=== PATIENT | male | born 1975 | race Caucasian/White ===

== ENCOUNTER 2019-07-29 15:57 | Emergency (ER) | payer OTHER ==
[~2019-07-29] VITALS: Ht 185.4 cm; Wt 97.5 kg
[2019-07-29] MEDS ORDERED: SODIUM CHLORIDE 0.9% 1000ML 1,000 ML IV STA (16:32)
--- NOTE | 2019-07-29 16:40 | Emergency Department Note ---
History of Present Illnes History of Present Illness Chief Complaint: Abdominal Complaints History of Present Illness This is a 44 year old male . c/p epigastric pain x 6 days worse w/ eating c/o n/v Historian: Patient Arrival Mode: Car Radiation: non-radiation Severity: moderate Onset quality: gradual Duration (how long): day(s) (6days) Timing of current episode: intermittent Progression: waxing and waning Context: recent illness, recent surgery, recent immobilization, recent travel, trauma/injury, new medications, hx of DVT/PE, non-compliance w/ medications, other Relieving factors: none Exacerbating factors: none Treatments prior to arrival: none (ROSA DAMIAN NP) Past Medical/Family History Physician Review I have reviewed the patient's past medical and family history. Any updates have been documented here. (ROSA DAMIAN NP) Past Medical History Recent Fever: No Clinical Suspicion of Infectio: No New/Unexplained Change in Ment: No Past Medical History: None Past Surgical History: None (ROSA DAMIAN NP) Social History Smoking Cessation: Never Smoker Alcohol Use: Social Any Illegal Drug Use: No TB Exposure/Symptoms: No Physically hurt or threatened: No (ROSA DAMIAN NP) Family History Family history of heart diseas: No (ROSA DAMIAN NP) Other Any Pre-Existing Lines (PICC,: No (ROSA DAMIAN NP) Review of Systems Review of Systems Constitutional: no symptoms, as per HPI, chills, diaphoresis, fever, malaise, weakness, other EENTM: no symptoms, as per HPI, eye pain, blurred vision, tearing, double vision, ear pain, ear discharge, nose pain, nose congestion, throat pain, throat swelling, mouth pain, mouth swelling, other Cardiovascular: no symptoms, as per HPI, chest pain, edema, palpitations, syncope, other Respiratory: no symptoms, as per HPI, change in phlegm color, chest congestion, cough, hemoptysis, excessive phlegm production, pain on inspiration, pain with cough, dyspnea, dyspnea on exertion, snoring, stridor, wheezing, other Gastrointestinal: abdominal pain, nausea, vomiting Genitourinary: no symptoms, as per HPI, discharge, dysuria, frequency, hematuria, pain, other Musculoskeletal: no symptoms, as per HPI, back pain, gout, joint pain, joint swelling, muscle pain, muscle stiffness, neck pain, other Neurological: no symptoms, as per HPI, headache, numbness, paresthesia, pre- existing deficit, seizure, tingling, tremors, weakness, other Psychological: no symptoms, as per HPI, anxiety, depressed, emotional problems, other Endocrine: no symptoms, as per HPI, excessive sweating, flushing, intolerance to cold, intolerance to heat, increased hunger, increased thirst, increased urination, unexplained weight gain, unexplained weight loss, other Hematological/Lymphatic: no symptoms, as per HPI, anemia, blood clots, easy bleeding, easy bruising, swollen glands, other Review of other systems All other systems reviewed and negative. (ROSA DAMIAN NP) Physical Exam Related Data Allergies: Coded Allergies: No Known Allergies (Unverified , 07/29/19) Triage Vital Signs Vital Signs Date Time Temp Pulse Resp B/P (MAP) Pulse Ox O2 Delivery O2 Flow Rate FiO2 07/29/19 16:29 99.2 86 16 133/97 98 Vital signs reviewed: Yes (ROSA DAMIAN CHARGE ENTRY CLERK) Physical Exam CONSTITUTIONAL Constitutional: well-developed, well-nourished HENT HENT: normocephalic, atraumatic, oropharynx clear/moist, nose normal HENT L/R: left ext ear normal, right ext ear normal EYES Eyes: conjunctivae normal, EOM normal NECK Neck: ROM normal PULMONARY Pulmonary: effort normal, breath sounds normal CARDIOVASCULAR Cardiovascular: regular rhythm, heart sounds normal, capillary refill normal, n ormal rate GASTROINTESTINAL Abdominal: soft, bowel sounds normal, tender (mild epigastric ttp ) GENITOURINARY Genitourinary: exam deferred SKIN Skin: warm, dry MUSCULOSKELETAL Musculoskeletal: ROM normal NEUROLOGICAL Neurological: alert, oriented x 3, no gross motor or sensory deficits PSYCHOLOGICAL Psychological: mood/affect normal, judgement normal (ROSA DAMIAN CHARGE ENTRY CLERK) Results Laboratory Laboratory Laboratory Tests Test 07/29/19 16:40 White Blood Count 7.14 x10e3/uL (4.8-10.8) Red Blood Count 5.23 x10e6/uL (4.3-5.7) Hemoglobin 16.1 g/dL (14.0-18.0) Hematocrit 47.2 % (38.2-49.6) Mean Corpuscular Volume 90.2 fL (81-99) Mean Corpuscular Hemoglobin 30.8 pg (28-32) Mean Corpuscular Hemoglobin Concent 34.1 g/dL (31-35) Red Cell Distribution Width 11.4 % (11.7-14.4) Platelet Count 232 x10e3/uL (140-360) Neutrophils (%) (Auto) 66.5 % (38.7-80.0) Lymphocytes (%) (Auto) 21.6 % (18.0-39.1) Monocytes (%) (Auto) 7.3 % (4.4-11.3) Eosinophils (%) (Auto) 3.9 % (0.0-6.0) Basophils (%) (Auto) 0.4 % (0.0-1.0) Neutrophils # (Auto) 4.8 (2.1-6.9) Lymphocytes # (Auto) 1.5 (1.0-3.2) Monocytes # (Auto) 0.5 (0.2-0.8) Eosinophils # (Auto) 0.3 (0.0-0.4) Basophils # (Auto) 0.0 (0.0-0.1) Absolute Immature Granulocyte (auto 0.02 x10e3/uL (0-0.1) Sodium Level 138 mmol/L (136-145) Potassium Level 4.3 mmol/L (3.5-5.1) Chloride Level 104 mmol/L (98-107) Carbon Dioxide Level 24 mmol/L (22-29) Anion Gap 14.3 mmol/L (8-16) Blood Urea Nitrogen 15 mg/dL (7-26) Creatinine 1.30 mg/dL (0.72-1.25) Estimat Glomerular Filtration Rate 59 ML/MIN (60-) BUN/Creatinine Ratio 12 (6-25) Glucose Level 96 mg/dL (74-118) Calcium Level 9.5 mg/dL (8.4-10.2) Total Bilirubin 0.9 mg/dL (0.2-1.2) Aspartate Amino Transf (AST/SGOT) 18 IU/L (5-34) Alanine Aminotransferase (ALT/SGPT) 20 IU/L (0-55) Alkaline Phosphatase 62 IU/L (40-150) Troponin I < 0.001 ng/mL (0-0.300) Total Protein 7.4 g/dL (6.5-8.1) Albumin 4.3 g/dL (3.5-5.0) Globulin 3.1 g/dL (2.3-3.5) Albumin/Globulin Ratio 1.4 (0.8-2.0) Amylase Level 50 U/L (25-125) Lipase 38 U/L (8-78) Lab results reviewed: Yes (ROSA DAMIAN NP) Imaging Imaging results reviewed: Yes Impressions ct abd IMPRESSION: Diffuse diverticulosis throughout the colon without diverticulitis. Signed by: Dr. Vilma Wells M.D. on 07/29/2019 7:02 PM (ROSA DAMIAN NP) Critical Care Time Subsequent provider I assumed direction of critical care for this patient from another provider of my specialty. (ROSA DAMIAN NP) Assessment & Plan Assessment & Plan Problems: (1) Abdominal pain Assessment & Plan 44y m presented to ed c/o mid epigastric abd pain x 6 days worse w/ eating c/o intermittent n/v - discussed presentation and plan of care w/ Dr Ford - lab ct us ordered - pt medicated w/ ns zofran protonix bentyl Dr Bryan in eval pt status discussed lab ct results plan of care and f/u instructions 1. f/u w/ gi doc Wednesday w/o fail 2. return to ed as needed 3. bland diet (ROSA DAMIAN NP) Depart Disposition: HOME, SELF-CARE Medications in the ED Sodium Chloride 1,000 ml @ 0 mls/hr Q0M STAT IV ; Start 07/29/19 at 16:32; Stop 07/29/19 at 16:33 Pantoprazole Sodium 40 mg ONCE STAT IV ; Start 07/29/19 at 16:32; Stop 07/29/19 at 16:33; Status UNV Dicyclomine HCl 20 mg ONCE ONCE IM ; Start 07/29/19 at 16:45; Stop 07/29/19 at 16:46 (ROSA DAMIAN NP) Attestation Provider Attestation The patient's history, exam findings, diagnostics, and a summary of any interve ntions or procedures was reviewed in detail with our SUNDAR. I personally interviewed and examined the patient, and I have reviewed and agree with the HPI andexam. My personal exam shows [ pt with mild epigastric tenderness on exam, abd soft, bowel sounds positive]. I confirm the diagnosis as documented by the SUNDAR. I have reviewed and agree with the care plan articulated in the disposition section. (LAKEISHA BRYAN MD) ROSA DAMIAN NP July 29, 2019 16:40 LAKEISHA BRYAN MD July 29, 2019 19:27
[2019-07-29] MEDS ORDERED: PANTOPRAZOLE 40 MG 10ML VIAL IV NR (16:45)
[2019-07-29] MEDS ORDERED: DICYCLOMINE HCL 20 MG/2 ML VIAL IM ONE (16:45)
[2019-07-29 17:03] LABS: BASOPHILS % 0.4 % (0.0-1.0); EOSINOPHILS # (AUTO) 0.3 (0.0-0.4); EOSINOPHILS % 3.9 % (0.0-6.0); HEMATOCRIT 47.2 % (38.2-49.6); HEMOGLOBIN 16.1 g/dL (14.0-18.0); LYMPHOCYTES # (AUTO) 1.5 (1.0-3.2); LYMPHOCYTES % 21.6 % (18.0-39.1); MEAN CORPUSCULAR HEMOGLOBIN 30.8 pg (28-32); MEAN CORPUSCULAR HGB CONC 34.1 g/dL (31-35); MEAN CORPUSCULAR VOLUME 90.2 fL (81-99); MONOCYTES # (AUTO) 0.5 (0.2-0.8); MONOCYTES % 7.3 % (4.4-11.3); NEUTROPHILS # (AUTO) 4.8 (2.1-6.9); NEUTROPHILS % 66.5 % (38.7-80.0); PLATELET COUNT 232 x10e3/uL (140-360); RED BLOOD COUNT 5.23 x10e6/uL (4.3-5.7); RED CELL DISTRIBUTION WIDTH 11.4 % (11.7-14.4)
[2019-07-29 17:17] LABS: ALBUMIN 4.3 g/dL (3.5-5.0); ALBUMIN/GLOBULIN RATIO 1.4 (0.8-2.0); ANION GAP 14.3 mmol/L (8-16); CALCIUM 9.5 mg/dL (8.4-10.2); CREATININE, SERUM 1.3 mg/dL (0.72-1.25); POTASSIUM 4.3 mmol/L (3.5-5.1)
[2019-07-29] MEDS ORDERED: IOPAMIDOL 370 MG/ML 200 ML INFUS..BTL INJ ONE (18:54)
[2019-07-29] MEDS ORDERED: SODIUM CHLORIDE 0.9% 50ML 50 ML ONE (18:54)
--- NOTE | 2019-07-29 19:05 | Diagnostic Imaging Report ---
EXAM: CT Abdomen and Pelvis WITH contrast INDICATION: ^abd pain ^[id number] ^1800 COMPARISON: None. TECHNIQUE: Abdomen and pelvis were scanned utilizing a multidetector helical scanner from the lung base to the pubic symphysis after administration of IV contrast. Coronal and sagittal reformations were obtained. Routine protocol was performed. Scan was performed when during portal venous phase. IV CONTRAST: 100 mL of Isovue-370 ORAL CONTRAST: Water RADIATION DOSE: Total DLP: 509 mGy*cm Estimated effective dose: (DLP x 0.015 x size factor) mSv COMPLICATIONS: None FINDINGS: LINES and TUBES: None. LOWER THORAX: Unremarkable HEPATOBILIARY: No focal hepatic lesions. No biliary ductal dilation. GALLBLADDER: No radio-opaque stones or sludge. No wall thickening. SPLEEN: No splenomegaly. PANCREAS: No focal masses or ductal dilatation. ADRENALS: No adrenal nodules KIDNEYS/URETERS: Kidneys enhance symmetrically. No hydronephrosis. No cystic or solid mass lesions. No stones. GI TRACT: No abnormal distention, wall thickening, or evidence of bowel obstruction. Diffuse diverticulosis throughout the colon without diverticulitis. Appendix is normal. PELVIC ORGANS/BLADDER: Unremarkable. LYMPH NODES: No lymphadenopathy. VESSELS: Unremarkable. PERITONEUM / RETROPERITONEUM: No free air or fluid. BONES: Unremarkable. SOFT TISSUES: Unremarkable. IMPRESSION: Diffuse diverticulosis throughout the colon without diverticulitis. Signed by: Dr. Vilma Wells M.D. on 07/29/2019 7:02 PM
--- NOTE | 2019-07-29 19:21 | Diagnostic Imaging Report ---
EXAM: Right Upper Quadrant Abdominal Ultrasound INDICATION: ^ABD PAIN ^Y COMPARISON: CT abdomen pelvis 07/29/2019 TECHNIQUE: Transverse and longitudinal images of the right upper abdomen were obtained. FINDINGS: Liver: Size: 14.5 cm in the right midclavicular line, normal Appearance: Normal echogenicity, smooth contour Mass: No focal masses Gallbladder: Stones/Sludge: None Wall: 0.3 cm Appearance: No pericholecystic fluid or hydrops. Sonographic Rodriguez's Sign: Negative Bile Ducts: Intrahepatic Ducts: No dilatation Extrahepatic Ducts: Common bile duct measures 0.3 cm, no dilatation Pancreas: Visualized portions of the pancreatic head, neck and proximal body are normal. Right Kidney: Size: 10.8 x 5.2 x 4.7 cm Echogenicity: Normal Parenchymal thickness: Normal Collecting System: No hydronephrosis Stone: None Cyst/Mass: None Vessels: Aorta: Visualized portions are normal Inferior Vena Cava: Visualized portions are normal Main Portal Vein: 1 cm, normal size with hepatopetal flow. Free Fluid: No ascites or pleural effusion IMPRESSION: Unremarkable right upper quadrant abdominal ultrasound. Signed by: Tee Puentes MD on 07/29/2019 7:18 PM
== END 2019-07-29 19:40 | disposition home or self-care (01) ==
LOC: ER 15:57
DX: R10.13 Epigastric pain (principal); R11.2 Nausea with vomiting, unspecified
CPT/HCPCS: 36415; 74177; 76705; 80053; 82150; 83690; 84484; 85025; 99284